=== PATIENT | female | born 1990 | race Caucasian/White ===

== ENCOUNTER 2017-09-14 05:22 | Day surgery (SDC) | payer BC, SELFPAY ==
--- NOTE | 2017-09-14 | IMM_PTH ---
PATIENT: GAUTAM WEAVER LOC: EN U#:[id number] AGE/SX: 27/F ROOM: RE09/14/[address]: Dr. Andrea Mcbride MD : 1990 BED: DIS: 09/14/2017 SPEC #: [id number] RECD: 09/15/17 12:55 STATUS: LORE RECoco #: [id number] LIVIA: 09/14/17 00:[address]: Andrea Mcbride DEPT: IMMUNOHISTOCHEMISTRY RECD BY: Natasha Doyle ENTERED: 09/15/17 12:57 SP TYPE: IMMUNO OTHR DR: Negra Guillaume PA-C Tissues: A - Stomach, NOS Procedures: H Pylori (initial) PHYSICIAN & INSTITUTION [place] [id number] SPECIMEN INFORMATION: Tissue Source: A ? Antral biopsy Clinical Info: Epigastric pain Specimen Number: [id number] CPT code: 84970 METHODOLOGY: Deparaffinized sections of prefer/formalin-fixed tissue or PAP/DQ stained slides are incubated with monoclonal/polyclonal antibodies/oligonucleotide probes. Localization is made via biotin free immunoperoxidase method. Appropriate controls are performed and reacted as expected. Results on target cell population are indicated in the following table: RESULTS: ANTIBODY / CLONE RESULT Block A H Pylori (polyclonal) negative These tests were developed and their performance characteristics determined by [facility]. They may not have been cleared or approved by the U.S. Food and Drug Administration. The FDA has determined that such clearance or approval is not necessary. INTERPRETATION: A. Antral biopsy: Negative for Helicobacter pylori organisms. SJ:magdi 09/16/17
[2017-09-14 06:09] VITALS: BP 114/84; PULSE 70; RESP 16; TEMP 36.5; O2SAT 100; BMI 32.3
--- NOTE | 2017-09-14 06:37 | EGD_PTH ---
PATIENT: GAUTAM WEAVER LOC: EN U#:[id number] AGE/SX: 27/F ROOM: RE09/14/[address]: Dr. Andrea Mcbride MD : 1990 BED: DIS: 09/14/2017 SPEC #: [id number] RECD: 09/14/17 11:28 STATUS: LORE ADRIANA #: [id number] LIVIA: 09/14/17 06:[address]: Andrea Mcbride DEPT: SURGICAL PATHOLOGY RECD BY: Tomasz Rivas ENTERED: 09/14/17 12:01 SP TYPE: EGD BIOPSY OT DR: Negra Guillaume PA-C Tissues: A - Gastric mucous membrane B - Esophageal mucous membrane Procedures: Surgery Specimen Level IV HEADER OPERATION: EGD with biopsy PRE-OP DIAGNOSIS: Epigastric pain TISSUE SUBMITTED: A ? Antral biopsy for H. pylori and path, B ? Distal esophagus biopsy MICROSCOPIC DIAGNOSIS A. Antral biopsy: Mild gastritis. B. Distal esophagus, biopsy: Fragment of squamous epithelium with minimal chronic inflammation. DEEPAK:magdi 09/15/17 COMMENT A. The results of immunohistochemistry for Helicobacter pylori will be reported separately ([id number]). MICROSCOPIC DESCRIPTION Slides are reviewed. A. The specimen shows fragments of gastric mucosa with chronic inflammatory cell infiltrates in the lamina propria consisting of lymphocytes and plasma cells, consistent with mild chronic gastritis. GROSS DESCRIPTION A - Received in fixative is one container labeled with the patient's name and designated antral biopsy. The specimen consists of one irregular fragment of light goldberg soft tissue that measures 0.4 x 0.3 x 0.1 cm. The specimen is totally submitted in one cassette. B - Received in fixative is one container labeled with the patient's name and designated distal esophagus. The specimen consists of one irregular fragment of light goldberg soft tissue that measures 0.2 x 0.1 x 0.1 cm. The specimen is totally submitted in one cassette. / DEEPAK:magdi 09/14/17 TC:3 [facility]: [id number] x2
--- NOTE | 2017-09-14 06:42 | PCM.OPRPT ---
Problem List (1) Abdominal pain Status: Acute Qualifiers: Abdominal location: epigastric Qualified Code(s): R10.13 - Epigastric pain Report of Operation Date of Procedure: 09/14/17 Pre-Operative Diagnosis: Epigastric abdominal pain Post-Operative Diagnosis: Minimal antral erythema. Small hiatal hernia Surgery/Procedure Performed:: Esophagogastroduodenoscopy with biopsy Description of Surgical Findings:: Timeout and informed consent was obtained. 27-year-old female was taken to the endoscopy suite. Her oropharynx was anesthetized with Cetacaine. She was placed in a left lateral decubitus position. Throughout the procedure she received a total of 100 mg Demerol and 4 mg of Versed is intravenous sedation. Under direct visitation the flexible upper endoscope was advanced. Proximal mid distal esophagus did not appear to be remarkable. EG junction was at centimeters. Very small hiatal hernia noted. No marge evidence of reflux. The scope was advanced into the stomach. There was a mild amount of antral erythema. Scope was advanced through the pylorus and the first and second portions of the duodenum were inspected. This was not remarkable. The scope was withdrawn back into the stomach retroflexed the EG junction and cardia inspected. Very small hiatal hernia. No evidence of ulceration or bleeding. The scope was placed back in antegrade viewing position. The greater and lesser curvatures were inspected. A very mild amount of erythema of the body of the stomach. Scope was advanced back down to the antral area were antral biopsy was obtained. Excess fluid and air was aspirated free. The scope was withdrawn to the distal esophagus and the distal esophageal biopsy close the EG junction was obtained. These biopsies were performed with cold forceps. The scope was further withdrawn without additional abnormality noted. Impression Minimal antral erythema. Small hiatal hernia. Findings do not correlate with active disease. Patient will be notified of pathology results as they become available. At this point anticipate proceeding with laparoscopic cholecystectomy based upon a diagnosis of biliary dyskinesia. Cc: KERI Hicks M.D., F.A.C.S. Type of Anesthesia:: IV Sedation
[2017-09-14 06:45] VITALS: BP 109/53; BP 114/84; PULSE 97; RESP 16; TEMP 36.8; O2SAT 100
[2017-09-14 06:50] VITALS: BP 114/84; BP 118/74; PULSE 100; RESP 16; O2SAT 100
[2017-09-14 06:55] VITALS: BP 114/84; BP 124/64; PULSE 88; RESP 16; O2SAT 100
[2017-09-14 07:00] VITALS: BP 105/51; BP 114/84; PULSE 66; RESP 16; TEMP 530.8; TEMP 987.4; O2SAT 99
[2017-09-14 07:07] VITALS: BP 114/84
== END 2017-09-14 07:30 | disposition home or self-care (01) ==
LOC: EN 05:22 → AC 05:23
PROVIDERS: Family Provider Family Medicine; PCP Family Medicine; Visit Provider Surgery
PROC: (CPT 43239; principal; 2017-09-14 06:25)
DX: K29.70 Gastritis, unspecified, without bleeding (principal); K21.0 Gastro-esophageal reflux disease with esophagitis; K44.9 Diaphragmatic hernia without obstruction or gangrene; E28.2 Polycystic ovarian syndrome
CPT/HCPCS: 43239; 88305; 88342; 93005; 99152; J7120

== ENCOUNTER 2017-09-20 05:15 | Day surgery (SDC) | payer BC, SELFPAY ==
--- NOTE | 2017-09-14 05:59 | EKG12_ITS ---
Test Reason : PRE-OP Blood Pressure : / mmHG Vent. Rate : 071 BPM Atrial Rate : 071 BPM P-R Int : 144 ms QRS Dur : 096 ms QT Int : 382 ms P-R-T Axes : 054 057 034 degrees QTc Int : 415 ms Normal sinus rhythm Normal ECG Confirmed by NANCY JADE ([id number]), metropolitan editor FANTA KOENIG ([id number]) on 09/16/2017 2:11:14 PM Referred By: Andrea Mcbride Confirmed By:NANCY JADE
[2017-09-14 06:23] LABS: Hematocrit 42.4 % (37-47); Hemoglobin 14.2 g/dl (12.0-15.0); Mean Corp Hgb Conc 33.5 g/gl (32-36); Mean Corpuscular Volume 86.5 fL (81-99); Mean Platelet Vol. 10.2 fl (6.2-12.0); Platelet Count 165 K/mm3 (150-450); RBC Distribution Width CV 12.7 % (11.6-14.6); White Blood Count 5.9 K/mm3 (4.4-11.0)
[2017-09-14 06:24] LABS: Scan Indicated on CBC? Y/N NO
[2017-09-14 06:35] LABS: Anion Gap 7 (5-15); BUN 12 mg/dL (7-18); BUN/Creat Ratio 14.1 RATIO (10-20); Calcium,Total 9.3 mg/dL (8.5-10.1); Chloride 108 mmol/L (98-107); Creatinine, Serum 0.85 mg/dL (0.55-1.02); EST Glomerular Filtration Rate 85 mL/min (>60); Est Glom Filt Rate - Afr Amer 103 mL/min (>60); Glucose 89 mg/dL (74-106); Sodium Level 140 mmol/L (136-145)
[2017-09-20] VITALS (9 sets, daily range): BP systolic 110–130; BP diastolic 63–85; PULSE 74–98; RESP 16–18; TEMP 36.3–36.8; O2SAT 91–100; BMI 34.6
[2017-09-20 06:07] LABS: Internal QC Validated? YES +Cl - CLEAR BKGD; Pregnancy, Urine Negative Negative
--- NOTE | 2017-09-20 06:59 | DCINST_ITS ---
Discharge Diet: Light diet - advance as tolerated - if you have questions about your diet instructions, please talk to you doctor. Discharge Activity: May Not Drive - for 1 week or while taking narcotic pain medicine. May shower in (days): 1 Lifting Restrictions: 10 pounds Call your doctor if your incision/area has: Continuous Slow Oozing, Sudden Increased Bleeding, Increased Pain/ Swelling, Increased Redness, Foul Smelling Discharge Call your doctor if you observe: Fever of 101 or Higher Suture Line Care: Avoid Pulling/Pushing, Avoid Pinching/Bending Additional Dressing/Incision Instructions:: Change or remove dressing in 4 days. Leave steri-strips in place for 1 week. Allergies/Adverse Reactions: Allergies No Known Allergies Allergy (Verified 09/13/17 13:47) Medications to take at Discharge Hydrocodone Bitart/Apap 5-325 [[place] 5MG-325MG] 1 tablet PO Q6H PRN PRN 3 Days # 10 tablet 09/20/17 The following prescriptions were given: Hydrocodone Bitart/Apap 5-325 [[place] 5MG-325MG] 1 tablet PO Q6H PRN PRN 3 Days # 10 tablet PRN Reason: Pain Primary Care Physician: Negra Guillaume PA-C [Primary Care Provider] - Please Follow Up With: Andrea Mcbride MD - [phone] When: Call to make an appointment to be seen in about 10 days.
[2017-09-20] MEDS: Lactated Ringers 1,000 ML 15 ML IV (07:00)
[2017-09-20] MEDS: Cefazolin 2 GM in 0.9% Normal Saline 100 ML IV (07:05)
--- NOTE | 2017-09-20 07:15 | GALL_PTH ---
PATIENT: GAUTAM WEAVER LOC: [facility] [place] U#:[id number] AGE/SX: 27/F ROOM: RE09/20/[address]: Dr. Andrea Mcbride MD : 1990 BED: DIS: 09/20/2017 SPEC #: [id number] RECD: 09/20/17 11:35 STATUS: LORE ADRIANA #: [id number] LIVIA: 09/20/17 07:[address]: Andrea Mcbride DEPT: SURGICAL PATHOLOGY RECD BY: Tomasz Rivas ENTERED: 09/20/17 12:49 SP TYPE: CHRIS RODRIGUES DR: Negra Guillaume PA-C Tissues: Gallbladder, NOS Procedures: Surgery Specimen Level III HEADER OPERATION: Laparoscopic cholecystectomy with IOC PRE-OP DIAGNOSIS: Biliary dyskinesia TISSUE SUBMITTED: Gallbladder MICROSCOPIC DIAGNOSIS Gallbladder, cholecystectomy: Cholesterolosis and chronic cholecystitis. AM:magdi 09/21/17 MICROSCOPIC DESCRIPTION Slides are reviewed. GROSS DESCRIPTION Received is one container labeled with the patient's name and designated gallbladder. The specimen consists of a gallbladder measuring 9 x 2.5 x 2.5 cm. The external surface is smooth and glistening. Focally, it is granular, hemorrhagic and contains cautery artifact. The lumen of the gallbladder contains greenish mucoid bile. No calculi are identified. The mucosa is bile-stained and without any mass lesions. The gallbladder wall averages 0.2 cm in thickness and is free of mass lesions. Clinic Charge Nurse sections of the gallbladder and the cystic duct are submitted in one cassette. / AM:magdi 09/20/17 TC:3 CPT: 18045
[2017-09-20] MEDS: Bupivacaine Mpf 0.5% 30 ML VIAL (07:22)
--- NOTE | 2017-09-20 07:25 | RAD_ITS ---
CLINICAL HISTORY: Female, 27 years old. Pain and biliary dyskinesia. No stones. PROCEDURE: CHOLANGIOGRAM - Fluoroscopy services provided for clinical procedure. Please refer to operating physician's procedure note for additional detail. FLUOROSCOPY TIME (if supplied): (Not provided.) minutes/seconds TECHNIQUE: (All elements of maximal sterile barrier technique followed, including US elements as applicable) No images submitted for interpretation. RAD/Cholangiogram/ O R,Initial IMPRESSION: No images submitted for interpretation. Electronically Signed: Mc Orona MD at 8:19 EDT , Service support ,
--- NOTE | 2017-09-20 08:09 | OP.PCM_ITS ---
Report of Operation Date of Procedure: 09/20/17 Pre-Operative Diagnosis: Biliary dyskinesia Post-Operative Diagnosis: Biliary dyskinesia. Umbilical hernia Surgery/Procedure Performed:: Laparoscopic cholecystectomy with cholangiography. Umbilical herniorrhaphy Description of Surgical Findings:: Timeout and informed consent was obtained. 27-year-old female was taken the operating room he was placed upon the table. She underwent general endotracheal intubation anesthesia. Ancef 2 g were given intravenously preoperatively. The abdomen was sterilely prepped and draped. 0.5% Marcaine was used as a local anesthetic. Throughout the procedure total 30 cc was used. Skin sites were pre-anesthetized. A vertical incision was made at the umbilicus sharp dissection and blunt dissection was used to identify a small umbilical hernia. Preperitoneal fatty tissue was dissected free and holding sutures of 0 Vicryl placed. Varies needle inserted. Saline drop test performed. The abdomen was insufflated with CO2 to pressure of 10 mmHg pressure. Pulmonary trocar inserted. 10 lap scope inserted. No evidence of any superficial abnormalities. Under direct visitation five-minute ports were placed in the epigastric right lateral abdomen and right upper quadrant area. The gallbladder was distracted. Blunt dissection was instituted at the infundibulum. The infundibular area was completely dissected free. The cystic duct and cystic artery identified. The critical view was achieved. 2 Hem-o- duran clips were placed on the cystic artery and one distally prior to transecting it. A Hem-o-duran clip was placed on the cystic duct incision in the cystic duct and a 14-gauge Angiocath was used to advance a cholangiogram catheter which was secured. Then fluoroscopically controlled cholangiograms were obtained. On visualization there was nice filling the common bile duct and normal hepatic filling. Unfortunately the fluoroscope did not perform image capture. I have elected not to repeat the radiation as I felt that I had good visualization and there was still one retained image on the viewer. The cholangiogram catheter was removed . 2 Hem-o-duran clips were placed on the cystic duct prior to transecting it. The posterior cystic artery was secured with a Hem-o-duran clip. The gallbladder was dissected from the liver bed the right upper quadrant was irrigated and aspirated free of excess fluid. Using electrocautery. Complete hemostasis was intact. The gallbladder was placed in retrieval bag. The gallbladder was exited the umbilicus the remaining trochars were removed under visualization the abdomen was allowed to deflate CO2 the fascia at the umbilicus with the hernia was approximated with a running 0 Nurolon. Skin edges proximate interrupted 4-0 Monocryl subdermal stitches. Steri-Strips Telfa and OpSite dressings applied. Sponge instrument and needle counts were reported to the surgeon for correct. There were no apparent complications. Specimens gallbladder. Drains none. Blood loss minimal. Andrea Mcbride M.D., F.A.C.S. Type of Anesthesia:: General Anesthesiologist: Chet Goyal
== END 2017-09-20 12:06 | disposition home or self-care (01) ==
LOC: SDC 05:16 → AC 05:22
PROVIDERS: Anesthesiology; Family Provider Family Medicine; PCP Family Medicine; Visit Provider Surgery
PROC: (CPT 47610; principal; 2017-09-20 06:55)
DX: K81.1 Chronic cholecystitis (principal); K82.8 Other specified diseases of gallbladder; K42.9 Umbilical hernia without obstruction or gangrene; K21.9 Gastro-esophageal reflux disease without esophagitis; E28.2 Polycystic ovarian syndrome; F41.9 Anxiety disorder, unspecified
CPT/HCPCS: 00790; 47563; 49585; 36415; 74300; 76000; 80048; 81025; 85027; 88304; J7120; A4216; J2405

== ENCOUNTER → 2018-06-06 15:29 | Outpatient (CLI) | payer BC, SELFPAY ==
[2017-09-20 05:47] VITALS: BMI 34.6
[2018-06-06 18:07] LABS: Follicle Stimulating Hormone 4.9 mIU/mL; Luteinizing Hormone 14.6 mIU/mL
[2018-06-08 11:00] LABS: DHEA Sulfate 537.2 ug/dL (84.8-378.0)
== END ==
PROVIDERS: Visit Provider Obstetrics & Gynecology
DX: N92.6 Irregular menstruation, unspecified (principal)
CPT/HCPCS: 36415; 82627; 83001; 83002; 84146; 82626

== ENCOUNTER → 2019-04-06 | Outpatient (CLI) | payer BC, SELFPAY ==
[2017-09-20 05:47] VITALS: BMI 34.6
== END | disposition home or self-care (01) ==
PROVIDERS: Visit Provider Obstetrics & Gynecology
DX: O26.891 Other specified pregnancy related conditions, first trimester (principal); R30.0 Dysuria; Z3A.00 Weeks of gestation of pregnancy not specified
CPT/HCPCS: 87086; 87088

== ENCOUNTER → 2019-04-20 15:09 | Outpatient (CLI) | payer BC, SELFPAY ==
[2017-09-20 05:47] VITALS: BMI 34.6
[2019-04-20 15:50] LABS: Absolute Lymphocyte Count 1.68 X10^3/uL (0.83-4.51); Absolute Neutrophil Count 5.3 X10^3/uL (2.0-7.7); Basophil# 0.04 X10^3/uL; Basophil% 0.5 % (0-1); Eosinophil# 0.11 X10^3/uL; Eosinophils% 1.4 % (0-5); Hematocrit 39.8 % (37-47); Hemoglobin 13.7 g/dL (12.0-15.0); Lymphocyte # 1.68 X10^3/ul (4.0); Lymphocyte % 21.5 % (19-41); Mean Corp Hgb Conc 34.4 g/dL (32-36); Mean Corpuscular Hgb 30.6 pg (27.0-32.0); Mean Platelet Vol. 10.5 fl (6.2-12.0); Monocyte# 0.65 X10^3/uL; Monocyte% 8.3 % (0-10); NRBC Flagged by Analyzer 0 % (0-5); Platelet Count 161 K/mm3 (150-450); RBC Distribution Width CV 11.9 % (11.6-14.6); RBC Distribution Width SD 38.5 fl (35.1-43.9); Red Blood Count 4.47 M/mm3 (4.2-5.4); White Blood Count 7.8 K/mm3 (4.4-11.0)
[2019-04-20 15:51] LABS: Color, Urine Straw (Yellow); Glucose, Dipstick Normal (Normal); Ketone-Dipstick Negative (Negative); Leukocyte Esterase-Dipstick 25 /ul (Negative); Nitrite-Dipstick Negative (Negative); Occult Blood-Urine Negative /ul (Negative); Protein-Dipstick Negative (Negative); Urine Bilirubin Dipstick Negative (Negative); Urine Clarity Clear (Clear); Urine Urobilinogen Normal (Normal)
[2019-04-20 16:32] LABS: Amphetamine Urine VISTA NEGATIVE (<1000 ng/mL); Barbiturate Urine VISTA NEGATIVE (< 200 ng/mL); Benzodiazepine Urine VISTA NEGATIVE (< 200 ng/mL); Cocaine Urine VISTA NEGATIVE (< 300 ng/mL); Ecstacy Urine VISTA NEGATIVE (< 500 ng/mL); Methadone Urine VISTA NEGATIVE (< 300 ng/mL); PCP Urine VISTA NEGATIVE (< 25 ng/mL); THC Urine VISTA NEGATIVE (< 50 ng/mL); Vista UDS pH Range 6
[2019-04-20 17:58] LABS: Thyroid Stim Hormone (TSH) 0.81 uIU/mL (0.358-3.74)
[2019-04-21 09:41] LABS: HIV - WCH Non-Reactive (Nonreactive); Hepatitis B Surface Antigen Non-Reactive (Nonreactive); Hepatitis C Antibody Non-Reactive (Nonreactive); Rubella IgG 250.3 IU/mL
[2019-04-27 01:53] LABS: Prenatal RPR NONREACTIVE (NONREACTIVE)
== END ==
PROVIDERS: Visit Provider Obstetrics & Gynecology
DX: Z34.81 Encounter for supervision of other normal pregnancy, first trimester (principal)
CPT/HCPCS: 36415; 80307; 81002; 84443; 85025; 86703; 86762; 86803; 87340

== ENCOUNTER → 2019-08-23 14:57 | Outpatient (CLI) | payer BC, SELFPAY | PROVIDERS: Visit Provider Obstetrics & Gynecology | DX: Z34.82 Encounter for supervision of other normal pregnancy, second trimester (principal); N39.0 Urinary tract infection, site not specified | CPT/HCPCS: 87086 ==

== ENCOUNTER → 2019-09-08 | Outpatient (CLI) | payer BC, SELFPAY ==
[2017-09-20 05:47] VITALS: BMI 34.6
[2019-09-08 16:07] LABS: Hematocrit 36.7 % (37-47); Hemoglobin 12.4 g/dL (12.0-15.0); Mean Corp Hgb Conc 33.8 g/dL (32-36); Mean Corpuscular Hgb 30.5 pg (27.0-32.0); Mean Corpuscular Volume 90.4 fL (81-99); Mean Platelet Vol. 11.3 fl (6.2-12.0); Platelet Count 128 K/mm3 (150-450); RBC Distribution Width CV 12.9 % (11.6-14.6); RBC Distribution Width SD 42.5 fl (35.1-43.9); Red Blood Count 4.06 M/mm3 (4.2-5.4); White Blood Count 8.3 K/mm3 (4.4-11.0)
[2019-09-08 16:12] LABS: Glucose Challenge Gest 1H 50g 100 mg/dL (70-140)
== END | disposition home or self-care (01) ==
LOC: LABSPEC 15:00
PROVIDERS: Referring Provider Obstetrics & Gynecology; Visit Provider Obstetrics & Gynecology
DX: Z34.83 Encounter for supervision of other normal pregnancy, third trimester (principal)
CPT/HCPCS: 82950; 85027

== ENCOUNTER → 2019-10-04 | Outpatient (CLI) | payer BC, SELFPAY ==
[2019-10-04 11:53] LABS: Hematocrit 39.8 % (37-47); Mean Corp Hgb Conc 32.7 g/dL (32-36); Mean Corpuscular Hgb 30.5 pg (27.0-32.0); Mean Corpuscular Volume 93.4 fL (81-99); Mean Platelet Vol. 11.3 fl (6.2-12.0); Platelet Count 131 K/mm3 (150-450); RBC Distribution Width CV 13.2 % (11.6-14.6); RBC Distribution Width SD 44.4 fl (35.1-43.9); Red Blood Count 4.26 M/mm3 (4.2-5.4); White Blood Count 9.3 K/mm3 (4.4-11.0)
== END | disposition home or self-care (01) ==
LOC: LAB 10:55
PROVIDERS: PCP Family Medicine; Referring Provider Obstetrics & Gynecology; Visit Provider Obstetrics & Gynecology
DX: O99.119 Other diseases of the blood and blood-forming organs and certain disorders involving the immune mechanism complicating pregnancy, unspecified trimester (principal); D69.6 Thrombocytopenia, unspecified; Z3A.00 Weeks of gestation of pregnancy not specified
CPT/HCPCS: 36415; 85027

== ENCOUNTER 2019-10-28 13:15 | Outpatient (CLI) | payer BC, SELFPAY ==
[2019-10-28 13:28] VITALS: BP 113/74; PULSE 74; TEMP 36.6
[2019-10-28 13:46] VITALS: BMI 37.4
--- NOTE | 2019-10-28 14:04 | US_ITS ---
STUDY: OBSTETRICAL ULTRASOUND - BIOPHYSICAL PROFILE REASON FOR EXAM: Female, 29 years old. Decreased movement. LMP: Unknown. PRIOR ULTRASOUND: None. TECHNIQUE: Transabdominal ultrasound evaluation was performed. FINDINGS: There is a single intrauterine fetus. The fetus is in a cephalic presentation. There is demonstrated cardiac activity with a heart rate of 143 bpm. There is a normal amniotic fluid volume. The amniotic fluid index (JEANNETTE) is 12.0 cm. The placenta is anterior in location and is not low lying. There is a nuchal cord noted. BIOPHYSICAL PROFILE: Breathing Movements (FBM): 2 Gross Body Movements (GBM): 2 Tone (FT): 2 Amniotic Fluid Volume (AFV): 2 TOTAL SCORE: 8 / 8 US/Biophysical Profile IMPRESSION: Normal biophysical profile of 8/8. Nuchal cord. Electronically Signed: Charlie Khan, at 16:10 EDT Tel , Service support ,
--- NOTE | 2019-10-28 16:54 | OB.TRI.PN ---
Progress Notes Date of Service: 10/28/19 Progress Note: Patient presents for triage evaluation secondary to decreased movement FHT: 130 Moderate variability reactive 1 isolated mild variables lasting 20 seconds going 20 beats below baseline and then no decelerations category I tracing Tavares: Rare contractions Assessment and plan: Decreased movement, BPP 8 out of 8 and JEANNETTE 12 cm, reactive NST, reassuring maternal and status patient discharged to home to follow-up in office reviewed kick counts. See problem list details for additional plan information. Multi Select Codes - Urinary/Genital Urinary/Genital CPT Codes: 57944-49 non-stress test Interp
[2019-10-29 09:24] VITALS: BP 120/71; PULSE 68
[2019-10-29 09:25] VITALS: BP 120/71; PULSE 77; TEMP 36.6; O2SAT 100
== END 2019-10-28 15:10 | disposition home or self-care (01) ==
LOC: WPOUT 13:22 → WP 13:22
PROVIDERS: PCP Family Medicine; Visit Provider Obstetrics & Gynecology
DX: O36.8190 Decreased fetal movements, unspecified trimester, not applicable or unspecified (principal); Z3A.00 Weeks of gestation of pregnancy not specified
CPT/HCPCS: 59025; 59050; 76818; 99218; G0378

== ENCOUNTER → 2019-11-01 09:52 | Outpatient (CLI) | payer BC, SELFPAY ==
[2019-10-28 13:46] VITALS: BMI 37.4
[2019-11-01 10:39] LABS: Platelet Count 119 K/mm3 (150-450)
== END ==
PROVIDERS: PCP Family Medicine; Visit Provider Obstetrics & Gynecology
DX: D69.6 Thrombocytopenia, unspecified (principal); Z36.85 Encounter for antenatal screening for Streptococcus B
CPT/HCPCS: 36415; 85049; 87081

== ENCOUNTER 2019-11-10 00:20 | Outpatient (CLI) | payer BC, SELFPAY ==
[2019-11-10 00:38] VITALS: BP 121/69; PULSE 90; TEMP 36.8
[2019-11-10 00:40] VITALS: BMI 36.1
[2019-11-10 01:14] VITALS: O2SAT 98
--- NOTE | 2019-11-12 07:57 | OB.TRI.NOTE ---
History of Present Illness Date of Service: 11/10/19 Was patient seen by the physician?: No Reason For Visit: R/O Labor Date of Service: 11/10/19 Final RAHUL: 11/25/19 Gestational age: 37 Weeks and 6 Days History of Present Illness: 37+ week intrauterine presents with some contractions. Denies leaking of fluid. Allergies erythromycin base Allergy (Mild, Verified 11/10/19 01:01) Swelling erythromycin eye ointment diphenhydramine [From Benadryl] Adverse Reaction (Verified 11/10/19 00:38) Itching - Pertinent Past Medical History Medical History: Past Medical History (Last Reviewed 09/29/17 @ 13:10 by Jordana Cotto) GERD (gastroesophageal reflux disease) (Acute) Surgical History: Past Surgical History (Last Reviewed 09/29/17 @ 13:10 by Jordana Cotto) Hx of cholecystectomy (Acute) No pertinent past surgical history Physical Exam Vitals: Vital Signs Temp Pulse BP Pulse Ox 98.3 F 90 121/69 H 98 11/10/19 00:38 11/10/19 00:38 11/10/19 00:38 11/10/19 01:14 NST - FHR Rate Baby A NST Reactive:: Yes FHR Category:: Category I Impression/Plan 37+ week intrauterine with false labor. After observation no cervical change. Reactive nonstress test. Will release to home with routine follow-up.
== END 2019-11-10 01:57 | disposition home or self-care (01) ==
LOC: WPOUT 00:26 → OBT 00:27
PROVIDERS: PCP Family Medicine; Visit Provider Obstetrics & Gynecology
DX: O47.1 False labor at or after 37 completed weeks of gestation (principal); Z3A.37 37 weeks gestation of pregnancy
CPT/HCPCS: 59025; 59050; 99218; G0378

== ENCOUNTER 2019-11-15 20:07 | Outpatient (CLI) | payer BC, SELFPAY ==
[2019-11-15 20:20] VITALS: BP 131/83; PULSE 81
[2019-11-15 20:21] VITALS: TEMP 36.6; O2SAT 98
[2019-11-15 21:05] VITALS: BMI 35.9
--- NOTE | 2019-11-16 08:17 | OB.TRI.NOTE ---
- Problem List (1) 38 weeks gestation of Status: Acute History of Present Illness Date of Service: 11/15/19 Was patient seen by the physician?: No Reason For Visit: RULE OUT LABOR Date of Service: 11/15/19 Final RAHUL: 11/25/19 Gestational age: 38 Weeks and 5 Days History of Present Illness: Came in to rule out labor. Reports having membranes stripped in the office today and contractions started soon after. Is breathing through contractions rating them a 5/10 on the pain scale. Allergies erythromycin base Allergy (Mild, Verified 11/15/19 21:03) Swelling erythromycin eye ointment diphenhydramine [From Benadryl] Adverse Reaction (Verified 11/15/19 21:03) Itching - Pertinent Past Medical History Medical History: Past Medical History (Last Reviewed 09/29/17 @ 13:10 by Jordana Cotto) GERD (gastroesophageal reflux disease) (Acute) Surgical History: Past Surgical History (Last Reviewed 09/29/17 @ 13:10 by Jordana Cotto) Hx of cholecystectomy (Acute) No pertinent past surgical history Review of Systems Constitutional: Denies: Chills, Fever, Weight Change HEENT: Denies: Head Aches, Sinus Congestion, Sinus Drainage Cardiovascular: Denies: Chest Pain, Palpitations Respiratory: Denies: Cough, Shortness of breath at rest, Sputum production Gastrointestinal: Denies: Abdominal Pain, Nausea, Vomiting Genitourinary: Denies: Dysuria Musculoskeletal: Denies: Joint Pain, Joint Tenderness Skin: Denies: Rash, Wounds Neurological: Denies: Numbness, Tingling, Focal weakness Psychiatric: Denies: Anxiety, Depression, Homicidal Ideations, Suicidal Ideations Hematologic/ Lymphatic: Denies: Easy Bruising, Easy Bleeding Physical Exam Vitals: Vital Signs Temp Pulse BP Pulse Ox 97.9 F 81 131/83 H 98 11/15/19 20:21 11/15/19 20:20 11/15/19 20:20 11/15/19 20:21 General: Alert, Oriented x3, No apparent distress HEENT: Atraumatic, Normocephalic. Negative for: Thyromegaly, Lymphadenopathy Cardiovascular: Regular rate, Regular Rhythm Lungs: Clear to auscultation Abdomen: Bowel Sounds Present, Gravid Neurological: Deep Tendon Reflexes 2+/4 and Symmetrical, Neuro grossly intact CUSTOM DESIGNER: Normal external genitalia. Negative for: Vulvar lesions Estimated gestational size: Appropriate for gestational size Presentation: Cephalic Cervix Dilation (cm): 3 Station: -2 Effacement (%): 50 NST - FHR Rate Baby A Baseline: 130 Variability:: Moderate Accelerations:: 15 x 15 Decelerations:: None NST Reactive:: Yes FHR Category:: Category I Uterine Activity:: 2-10m Impression/Plan A/P: at 38w4d gestation here to rule out labor UC 2-10m at first rating them a 5/10, but over the course of 5 hours down to a 2/10 SVE 3/50/-2 on admission, after 2 hours was still 3/50/-2, and after 5 hours still no cervical change at 3/50/-2 Educated on not being in labor until cervical change is being made To discharge home to rest and hydrate. To call the office in the AM if still elbert, but this can be common after having membrane sweep
== END 2019-11-16 01:15 | disposition home or self-care (01) ==
LOC: WPOUT 20:12 → OBT 20:13
PROVIDERS: PCP Family Medicine; Visit Provider Obstetrics & Gynecology
DX: Z34.83 Encounter for supervision of other normal pregnancy, third trimester (principal)
CPT/HCPCS: 59025; 59050; 99218; G0378

== ENCOUNTER → 2019-11-24 10:37 | Outpatient (CLI) | payer BC, SELFPAY ==
[2019-11-15 21:05] VITALS: BMI 35.9
== END ==
PROVIDERS: PCP Family Medicine; Visit Provider Obstetrics & Gynecology
DX: Z11.59 Encounter for screening for other viral diseases (principal)
CPT/HCPCS: 87635; G2023; U0003

== ENCOUNTER 2019-11-26 06:50 | Inpatient (IN) | payer BC, SELFPAY ==
[2019-11-26] VITALS (35 sets, daily range): BP systolic 101–146; BP diastolic 54–91; PULSE 69–100; RESP 16; TEMP 36.5–37.2; O2SAT 97–100; BMI 37.0
[2019-11-26] MEDS: Lactated Ringers 1,000 ML 50 ML IV (08:12)
[2019-11-26 08:31] LABS: Absolute Lymphocyte Count 1.53 X10^3/uL (0.83-4.51); Basophil# 0.01 X10^3/uL; Basophil% 0.1 % (0-1); Eosinophil# 0.05 X10^3/uL; Eosinophils% 0.6 % (0-5); Hematocrit 37.9 % (37-47); Hemoglobin 12.4 g/dL (12.0-15.0); Lymphocyte # 1.53 X10^3/ul (4.0); Lymphocyte % 18.8 % (19-41); Mean Corp Hgb Conc 32.7 g/dL (32-36); Mean Corpuscular Hgb 30.1 pg (27.0-32.0); Mean Platelet Vol. 11.4 fl (6.2-12.0); Monocyte# 0.55 X10^3/uL; Monocyte% 6.8 % (0-10); NRBC Flagged by Analyzer 0 % (0-5); Neutrophil # 5.97 X10^3/uL (2.7-7.7); Neutrophil % 73.5 % (47-70); Platelet Count 131 K/mm3 (150-450); RBC Distribution Width SD 43.2 fl (35.1-43.9); Red Blood Count 4.12 M/mm3 (4.2-5.4); White Blood Count 8.1 K/mm3 (4.4-11.0)
[2019-11-26] MEDS: Oxytocin 30 units/NS 500 ml 30 UNITS/500 ML IV.SOLN IV (08:36)
--- NOTE | 2019-11-26 09:38 | PCM.HP.OB ---
- Problem List (1) 40 weeks gestation of Status: Acute History Date of Admission: 11/26/19 Final RAHUL: 11/25/19 Final RAHUL Source: US <20 weeks Gestational age: 40 Weeks and 1 Days History of this : This is a 29 year-old, G [3], P [2002], at 40 1/7 weeks gestational age presenting for scheduled induction. Medical History: Medical History (Last Updated 11/26/19 @ 10:[address] Huong Banks MD) GERD (gastroesophageal reflux disease) (Acute) K21.9 Gestational thrombocytopenia O99.119, D69.6 Surgical History: Surgical History (Last Reviewed 11/26/19 @ 09:[address] Huong Banks MD) Hx of cholecystectomy (Acute) Z90.49 No pertinent past surgical history Allergies erythromycin base Allergy (Mild, Verified 11/26/19 08:14) Swelling erythromycin eye ointment diphenhydramine [From Benadryl] Adverse Reaction (Verified 11/26/19 08:14) Itching Home Medications: Home Medications Pnv No.95/Ferrous Fum/Folic AC [ Caplet] 1 tab PO DAILY 10/28/19 Smoking Status: Never smoker Alcohol: None NST - FHR Rate Baby A Baseline: 140 Variability:: Moderate Accelerations:: 15 x 15 Decelerations:: None NST Reactive:: Yes FHR Category:: Category I Uterine Activity:: 3/10 min History Past Pregnancies: Past Pregnancies Delivery Date GA/ Weeks Outcome Route Wt Infant Sex Labor Length Anesthesia Delivery Location FOB 11/2011 39 Living [id number] M 7 Epidural [facility] 05/2014 39 IOL [id number] F 12 Epidural [facility] Labs: Mom's Problem List Problem Status Onset Code 40 weeks gestation of Acute Z3A.40 Mom's Labs & Results 11/26/19 11/26/19 08:12 08:12 WBC 8.1 RBC 4.12 L Hgb 12.4 Hct 37.9 MCV 92.0 MCH 30.1 MCHC 32.7 RDW Std Deviation 43.2 RDW Coeff of Amy 13.0 Plt Count 131 L MPV 11.4 Immature Gran % (Auto) 0.200 Neut % (Auto) 73.5 H Lymph % (Auto) 18.8 L [place] % (Auto) 6.8 Eos % (Auto) 0.6 Baso % (Auto) 0.1 Absolute Neuts (auto) 6.0 Absolute Lymphs (auto) 1.53 Nucleated RBC % 0 Blood Type Pending Antibody Screen Pending Course Did the patient receive Yes care? Labs Blood Type: O RH: POSITIVE RPR/VDRL/Syphilis Nonreactive Rubella status Immune HbSAg Negative Date Done: 04/20/19 Chlamydia Negative Gonorrhea Negative HIV/AIDS Non-Reactive Group B Strep: Negative Current Obstetrical History Gestational Diabetes No Incompetent Cervix No Infertility No IUGR No Macrosomia No Hypertension/Pre-eclampsia No Placenta Previa/Abruption No PTL/PROM No Uterine anomaly No Oligohydramnios No Polyhydramnios No Multiple gestation No Past Medical History Asthma No Diabetes No Hypertension No Heart disease No Mitral valve prolapse No Neurologic/Seizure disorder/ No Migraines Kidney disease No Liver disease No Varicosities No Clotting disorders/Hx of DVT No Thyroid Dysfunction No Other medical diseases No Psychiatric disorders No Major trauma No Abnormal PAP smear No Sleep apnea No Mammogram in the last 2 years No Social History Marital Status: Alleged father Abhijit Hx Smoking No Smoking Status Never smoker Expected Delivery Method: Spontaneous Vaginal Number of Visits: 15 Physical Exam Vitals: Vital Signs Temp Pulse BP Pulse Ox 98.5 F 70 118/71 99 11/26/19 09:00 11/26/19 09:01 11/26/19 09:00 11/26/19 09:01 General: Alert, Oriented x3, Cooperative, No apparent distress HEENT: Atraumatic, Normocephalic Cardiovascular: Regular rate, Regular Rhythm Lungs: Normal air movement Abdomen: Soft, Non Tender, Non-Distended Extremities:: No edema Neurological: Neuro grossly intact UNDERGROUND SUPERVISOR: Normal external genitalia Estimated gestational size: Appropriate for gestational size Presentation: Cephalic Cervix Dilation (cm): 4 Station: -3 Effacement (%): 60 Assessment/Plan All Active Problems (Last Reviewed 09/29/17 @ 13:10 by Jordana Cotto) 38 weeks gestation of (Acute) 40 weeks gestation of (Acute) Hx of cholecystectomy (Acute) GERD (gastroesophageal reflux disease) (Acute) Abdominal pain (Acute) This is a 29 year-old, G [3], P [2], at 40 1/7 weeks gestational age. -Cat I FHR -Pitocin -Amniotomy performed Procedure Criteria Procedure Type: Elective COVID Risk Discussion: The surgeon/proceduralist and patient have discussed in detail the risk of exposure to and/or potential harm posed by the COVID-19 virus with having a surgery/procedure at this time versus the risk of delaying the surgery/procedure. It is not possible to know either the risk of delaying the surgery or procedure or chance of getting an infection with perfect accuracy, but a joint decision was made between the patient and the surgeon/proceduralist to proceed at this time with the scheduled surgery/procedure as indicated on the consent form.
[2019-11-26] MEDS: Lactated Ringers 500 ML 999 ML IV (12:17)
[2019-11-26] MEDS: Ondansetron 4 MG/2 ML Vial IV (12:28)
[2019-11-26] MEDS: fentaNYL-bupivacaine (epidural) 100 ML BAG EPIDURAL (12:57)
--- NOTE | 2019-11-26 13:45 | PCM.PN.BLA ---
Progress Note LABOR PROGRESS NOTE No complaints. She is comfortable with epidural. AVSS GEN - NAD, AAO x 3 FHR 125, moderate variability, no acceleration, no decelerations TOCO 4-5/10 min SVE deferred, most recent RN exam /-2 A/P: 29 yo @ 40 1/7wga in active labor, Cat I FHR -Continue pitocin as tolerated by mother and fetus STROKE Vital Signs/Narrative: Vital Signs Temp Pulse BP Pulse Ox 11/26/19 13:23 74 111/54 L 11/26/19 13:22 77 98 11/26/19 13:18 84 118/65 11/26/19 13:17 77 98 11/26/19 13:13 83 101/63 11/26/19 13:12 84 99 11/26/19 13:08 87 105/56 L 11/26/19 13:07 98.1 F 91 99 11/26/19 13:02 85 116/61 99 11/26/19 12:57 93 146/67 H 99 11/26/19 12:53 88 141/70 H 11/26/19 12:52 100 11/26/19 12:47 85 136/72 H 98 11/26/19 12:04 85 98 11/26/19 12:03 98.1 F 134/91 H 11/26/19 11:02 99.0 F 87 134/77 H 11/26/19 10:15 78 99 11/26/19 10:14 98.6 F 81 119/73
[2019-11-26] MEDS: Oxytocin 30 units/NS 500 ml 30 UNITS/500 ML IV.SOLN 334 UNITS IV (15:27)
--- NOTE | 2019-11-26 15:47 | PCM.OPRPT ---
Problem List (1) 40 weeks gestation of Status: Acute (2) (spontaneous vaginal delivery) Status: Acute Vaginal Delivery Maternal Presentation: Elective Induction Method of Induction: Pitocin, Amniotomy Amniotic Membrane Rupture Type: Artificial Rupture of Membrane time: 11/26/19 0933h Amniotic Fluid Description: Lightly stained meconium Final RAHUL: 11/25/19 Final RAHUL Source: US <20 weeks Gestational age: 40 Weeks and 1 Days doctor who attended delivery (if requested by OB): Poppy Skinner Date of Procedure: 11/26/19 Pre-Operative Diagnosis: 40 1/7wga Post-Operative Diagnosis: 40 1/7wga Surgery/ Procedure Performed: Spontaneous Vaginal Delivery Anesthesiologist: Hailey Zamarripa Type of Anesthesia: Epidural Description of Procedure: Patient was fully dilated and +3 station on my arrival with category 1 heart rate tracing. She pushed to deliver the head and CHELSY. Nuchal cord x2 was reduced at the perineum and infant mouth and nares were bulb suctioned. The shoulders delivered with ease revealing a female infant. The infant was placed on the maternal abdomen further attended by nursery personnel. The cord was doubly clamped and cut. Cord blood specimen was obtained. The placenta delivered spontaneously and appeared intact on inspection. A left periurethral laceration was repaired using 3-0 Vicryl repeat with excellent hemostasis obtained. Sponge and needle counts were correct x2. Presentation: Vertex Placental Delivery Description: Spontaneous Placenta Disposition: [facility] Cord Vessel Description: 3 Vessels Nuchal Cord Compression: Without compression Cord Entanglement: Around neck x 2, loose Drain: [place] to straight drain Estimated Blood Loss: 500 ml Infant A gender: Female (1 minute): 8 (5 minute): 9 Episiotomy Description: None Laceration: Periurethral Extnsion/lac Medications given after delivery: IV Pitocin Complications: None
[2019-11-26] MEDS: Ibuprofen 600 MG Tablet PO (16:29)
[2019-11-26] MEDS: 0.9% Saline Lock 10 ML Syringe IV (18:12)
[2019-11-27] VITALS (10 sets, daily range): BP systolic 109–123; BP diastolic 58–69; PULSE 74–88; RESP 16–18; TEMP 36.8–37.2
[2019-11-27] MEDS: Senna/Docusate Sodium 1 Tablet PO (01:09)
--- NOTE | 2019-11-27 08:22 | PN.OBGYN_ITS ---
Patient Problems: Active and Suspected Problems (Last Updated 11/26/19 @ 10:[address] Huong Banks MD) (spontaneous vaginal delivery) (Acute) 40 weeks gestation of (Acute) Subjective: No issues overnight. Infant latched with nipple shield initially, then latched without it. Nursing is going well. Denies heavy lochia. Has mild cramping with nursing. Objective: AVSS - Physical Exam Vitals/I&O's: Vital Signs Temp Pulse Resp BP Pulse Ox 98.5 F 74 18 110/69 98 11/27/19 03:35 11/27/19 07:32 11/27/19 03:35 11/27/19 07:32 11/26/19 17:33 Oxygen Delivery Method Room Air Weight: 100.97 kg Body Mass Index (BMI) 37.0 Intake and Output for Last 24 Hours 11/25/19 11/26/19 11/27/19 23:59 23:59 23:59 Intake Total 1988.92 / 1988. Output Total 1500 / 1500 Balance 489.92 / 489.92 General: Alert, Oriented x3, Cooperative, No apparent distress HEENT: Atraumatic, Normocephalic Lungs: Clear to auscultation, Normal air movement Cardiovascular: Regular rate, Regular Rhythm, Normal S1, Normal S2 Abdomen: Soft, Non Tender, Non-Distended, - - fundus firm and nontender Extremities: No edema, No Calf Tenderness Neurological: Neuro grossly intact Psych/Mental Status: Normal Affect, Appropriate, Alert and oriented to time, aram ce, person, mood and affect Laboratory Results 11/26/19 08:12: WBC 8.1, RBC 4.12 L, Hgb 12.4, Hct 37.9, MCV 92.0, MCH 30.1, MCHC 32.7, RDW Std Deviation 43.2, RDW Coeff of Amy 13.0, Plt Count 131 L, MPV 11.4, Immature Gran % (Auto) 0.200, Neut % (Auto) 73.5 H, Lymph % (Auto) 18.8 L, [place] % (Auto) 6.8, Eos % (Auto) 0.6, Baso % (Auto) 0.1, Absolute Neuts (auto) 6.0, Absolute Lymphs (auto) 1.53, Nucleated RBC % 0 11/26/19 08:12: Blood Type O POSITIVE, Antibody Screen NEGATIVE Current Medications Acetaminophen (Tylenol) 325 - 650 mg PO Q4H PRN PRN PRN Reason: Pain Score 1-3/10 Bisacodyl (Dulcolax) 10 mg RECTAL UD PRN PRN Reason: If no BM Dibucaine (Dibucaine) 1 applic TOPICAL TID PRN PRN; Protocol PRN Reason: Discomfort Hydrocortisone (Hytone) 1 applic TOPICAL TID PRN PRN; Protocol PRN Reason: Discomfort Ibuprofen (Motrin) 600 mg PO Q6H PRN PRN PRN Reason: Pain Score 1-3/10 Last Admin: 11/26/19 16:29 Dose: 600 mg Documented by: Methylergonovine Maleate (Methergine) 0.2 mg IM X1 PRN PRN Reason: Excess bleeding/uterine atony Ondansetron HCl (Zofran) 4 mg IV Q4H PRN PRN PRN Reason: NAUSEA Last Admin: 11/26/19 12:28 Dose: 4 mg Documented by: Multivit/Folic Acid/Iron (Prenatabs Fa) 1 tablet PO DAILY@1200 MONIQUE Senna/Docusate Sodium (Senokot-S, Dayan-Colace) 1 - 2 tablet PO DAILY PRN PRN PRN Reason: Constipation Last Admin: 11/27/19 01:09 Dose: 2 tablet Documented by: Simethicone (Mylicon) 80 mg PO PCHS PRN PRN Reason: Indigestion/Stomach pain Sodium Chloride () 5 - 15 ml IV UD PRN PRN Reason: SALINE FLUSH Last Admin: 11/26/19 18:12 Dose: 10 ml Documented by: Medical Necessity - Tobacco Use Smoking Status: Never smoker Assessment/Plan All Active Problems (Last Updated 11/26/19 @ 10:[address] Huong Banks MD) (spontaneous vaginal delivery) (Acute) 40 weeks gestation of (Acute) Hx of cholecystectomy (Acute) GERD (gastroesophageal reflux disease) (Acute) This is a 29 year-old, G [3], P [3003], PPD#1 s/p doing well. -Rh positive - -Routine care -Plan for d/c home later today
--- NOTE | 2019-11-27 08:25 | DCINST_ITS ---
Discharge Diet: No Restrictions Discharge Activity: Return to Normal Activity, May Shower, May Take a Tub Bath May resume sexual activity in: 4-6 weeks Additional Instructions: If you experience any of the following, contact your healthcare provider. * Bleeding that soaks a pad every hour for 2 hours * Fever 100.4 or higher * Unrelieved incision or abdominal pain * Swelling, redness, discharge or bleeding from your incision or episiotomy site * Your incision begins to separate * Problems urinating (including inability to urinate or burning while urinating). * Visual changes * Severe headache * Flu-like symptoms * Pain or redness in one of both of your breasts * Pain, warmth, tenderness or swelling in your legs, especially the calf area * Frequent nausea and vomiting * Symptoms of depression or anxiety If you experience any of the following, call 911 or go to the nearest Emergency Room. * Chest pain * Problems breathing * Seizure activity * Partial or complete paralysis of a body part, slurred speech, weakness or patricia oping of the face, or a sudden inability to walk or hold your balance Allergies/Adverse Reactions: Allergies erythromycin base Allergy (Mild, Verified 11/26/19 08:14) Swelling erythromycin eye ointment diphenhydramine [From Benadryl] Adverse Reaction (Verified 11/26/19 08:14) Itching Medications to take at Discharge Pnv No.95/Ferrous Fum/Folic AC [ Caplet] 1 tab PO DAILY 10/28/19 Please Follow Up With: Huong Bosch MD When: 2-3 weeks Please Follow Up With: Huong Bosch MD When: 6 weeks Primary Care Physician: Negra Guillaume PA-C [Primary Care Provider] - Test Results: Test results from this visit will be discussed in further detail at your follow- up appointment, if applicable.
--- NOTE | 2019-11-27 08:25 | PCM.DCVAG ---
Discharge Diet: No Restrictions Discharge Activity: Return to Normal Activity, May Shower, May Take a Tub Bath May resume sexual activity in: 4-6 weeks Additional Instructions: If you experience any of the following, contact your healthcare provider. Bleeding that soaks a pad every hour for 2 hours Fever 100.4 or higher Unrelieved incision or abdominal pain Swelling, redness, discharge or bleeding from your incision or episiotomy site Your incision begins to separate Problems urinating (including inability to urinate or burning while urinating). Visual changes Severe headache Flu-like symptoms Pain or redness in one of both of your breasts Pain, warmth, tenderness or swelling in your legs, especially the calf area Frequent nausea and vomiting Symptoms of depression or anxiety If you experience any of the following, call 911 or go to the nearest Emergency Room. Chest pain Problems breathing Seizure activity Partial or complete paralysis of a body part, slurred speech, weakness or drooping of the face, or a sudden inability to walk or hold your balance Allergies/Adverse Reactions: Allergies erythromycin base Allergy (Mild, Verified 11/26/19 08:14) Swelling erythromycin eye ointment diphenhydramine [From Benadryl] Adverse Reaction (Verified 11/26/19 08:14) Itching Medications to take at Discharge Pnv No.95/Ferrous Fum/Folic AC [ Caplet] 1 tab PO DAILY 10/28/19 Please Follow Up With: Huong Bosch MD When: 2-3 weeks Please Follow Up With: Huong Bosch MD When: 6 weeks Primary Care Physician: Negra Guillaume PA-C [Primary Care Provider] - Test Results: Test results from this visit will be discussed in further detail at your follow-up appointment, if applicable.
[2019-11-27] MEDS: Ibuprofen 600 MG Tablet PO (09:22)
[2019-11-27] MEDS: Prenatal Vits Tablet 1 TABLET PO (09:23)
== END 2019-11-27 17:45 | disposition home or self-care (01) | DRG 807 ==
PROVIDERS: Admitting Provider Obstetrics & Gynecology; PCP Family Medicine; Visit Provider Obstetrics & Gynecology
DX: O48.0 Post-term pregnancy (principal); Z37.0 Single live birth; Z3A.40 40 weeks gestation of pregnancy; O77.0 Labor and delivery complicated by meconium in amniotic fluid; O69.81X0 Labor and delivery complicated by cord around neck, without compression, not applicable or unspecified; O71.82 Other specified trauma to perineum and vulva
CPT/HCPCS: 59050; 85025; 86850; 86900; 86901; 99218; J7120; A4216; G0378; J2405

== ENCOUNTER → 2020-12-17 10:09 | Outpatient (CLI) | payer BC, SELFPAY ==
[2019-11-26 07:30] VITALS: BMI 37.0
[2020-12-17 10:59] LABS: Hematocrit 41.4 % (37-47); Hemoglobin 13.5 g/dL (12.0-15.0); Mean Corp Hgb Conc 32.6 g/dL (32-36); Mean Corpuscular Hgb 28.8 pg (27.0-32.0); Mean Corpuscular Volume 88.3 fL (81-99); Mean Platelet Vol. 10.4 fl (6.2-12.0); Platelet Count 204 K/mm3 (150-450); RBC Distribution Width CV 12.5 % (11.6-14.6); RBC Distribution Width SD 39.8 fl (35.1-43.9); Red Blood Count 4.69 M/mm3 (4.2-5.4); White Blood Count 5.6 K/mm3 (4.4-11.0)
== END ==
PROVIDERS: PCP Family Medicine; Visit Provider Obstetrics & Gynecology
DX: D69.6 Thrombocytopenia, unspecified (principal)
CPT/HCPCS: 36415; 85027

== ENCOUNTER → 2022-01-26 | Outpatient (CLI) | payer BC, SELFPAY ==
--- NOTE | 2022-01-26 13:06 | CT_ITS ---
STUDY: CT FACIAL BONES WITHOUT CONTRAST REASON FOR EXAM: Female, 31 years old. SINUSITIS RADIATION DOSAGE (If Supplied By Facility): CTDIvol = ( 28.14 ) mGy, DLP = ( 763.78 ) mGycm TECHNIQUE: The patient was scanned in a multi detector CT scanner. Sagittal and coronal images were reconstructed. Individualized dose optimization techniques were used for this CT. COMPARISON: None. FINDINGS: Normal soft tissue structures. Normal orbital sierra and orbital contents. Normal nasal bones and anterior nasal spine. Normal facial bones. There is no demonstrated fracture. Mild degree of mucosal thickening of the ethmoid sinuses. There is a 1.6 cm x 1.4 cm retention cyst or polyp at the base of the left maxillary sinus. The ostiomeatal complexes are patent bilaterally. CT/Sinus/Facial Bone IMPRESSION: 1.6 x 1.4 cm retention cyst or polyp at the base of the left maxillary sinus. Mild degree of mucosal thickening of the ethmoid sinuses bilaterally. Electronically Signed: Noel Garner MD at 13:43 EDT ,
== END | disposition home or self-care (01) ==
PROVIDERS: Referring Provider Otolaryngology; Visit Provider Otolaryngology
DX: J32.9 Chronic sinusitis, unspecified (principal)
CPT/HCPCS: 70486